=== PATIENT | female | born 1980 | race Two or more races ===

== ENCOUNTER 2024-04-23 13:50 | Outpatient (AMB) | payer MEDICAID, SELFPAY ==
[2024-04-23 14:01] VITALS: BP 108/71; PULSE 66; RESP 19; TEMP 36.4; O2SAT 99; BMI 24.4
--- NOTE | 2024-04-23 14:01 | PD.GSCLVISIT ---
[facility] - [facility] 04/23/24 14:01 Height 1.68 m Height Method Stated Weight 68.606 kg Weight Measurement Method Standing Scale BMI 24.4 BP 108/71 Blood Pressure Source Automatic Cuff Blood Pressure Location Right Upper Arm Position Sitting Respiration 19 Pulse 66 Pulse Source Monitor Temp 97.6 F Temp Source Temporal Artery Scan Pulse Oximetry (%) 99 Oxygen Delivery Method Room Air Med/Allergies Allergies & Medications Allergies No Known Allergies Allergy (Verified 04/23/24 14:02) Medication Reconciliation hydrocodone 5 mg-acetaminophen 325 mg tablet 1 tab PO Q8H PRN pain #7 tabs 10/18/22 [Rx Confirmed 04/23/24] misoprostol 200 mcg tablet 600 mcg (3 x 200 mcg) PO .once #3 tabs 10/18/22 [Rx Confirmed 04/23/24] ibuprofen 600 mg tablet 600 mg PO Q6H PRN pain #30 tabs 04/23/24 [Rx] MA Intake Visit Data Collection New Patient or Established: New Patient (never been to [facility]) Seen by Clinical Staff ONLY (RN/MA): No Reason for Visit:: REFERRAL HEMORRHOIDS Pain Present Currently: Yes Pain Location: Unable to identify Pain scale:: 3 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 PCP or OBGYN visit in last 3 months: Yes Hx Now: No Do You Feel Safe at Home: Yes Authorities Contacted: N/A Smoking Status Smoking Status: Never smoker Immunization / Flu Flu Vaccine in the Last 12 Months: No Flu Vaccine Exclusion Criteria: No Exclusion Criteria Past Medical History Past Medical History CARDIAC: Negative Congestive Heart Failure RESPIRATORY: Negative Chronic Obstructive Pulmonary Disease (COPD) GENITOURINARY: Negative Renal Disease ENDOCRINE: Negative Diabetes Mellitus Type 1 or Diabetes Mellitus Type 2 Social History SMOKING STATUS: Smoking status: Never smoker HPI HPI Narrative 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 Pt reports she has long had hemorrhoids but for the past 6 months has noted severe perianal pain which is worse with defecation; she states it is not exactly like passing shards of glass but she does get a severe, throbbing pain at the left perianal region during and after BMs. The pain is so severe she is afraid to eat and has lost 10 lbs during this time. Pt states her BMs are generally soft without any constipation; she had some bleeding initially but it improved with suppositories. Right now she is only using tylenol/ibuprofen which help minimally. Pt has not had a colonoscopy PMH: None PShx: None Meds: Tylenol, ibuprofen PRN Allergies: NKDA Social hx: Nonsmoker Family hx: no known malignancy ROS Review of Systems Systems Reviewed: All systems reviewed, normal except as documented Objective/Exam General General Appearance: alert, cooperative and well groomed Resp Respiratory exam: Absent respiratory distress Rectal Rectal exam: Present hemorrhoids (xternal hemorrhoids) and tenderness (left perianal tenderness; KATT was significant for severe pain but there were no palpable masses; anoscopy attempted but aborted due to severe pain) Assessment & Plan Diagnosis / Problem List (1) Anal fissure: Status: Acute Assessment & Plan: 43F presenting with 6 month history of perianal pain suggestive of an anal fissure. I will prescribe compound cream and ibuprofen PRN and follow up in 6 weeks. All questions were answered and pt is agreeable to this plan Office Procedures GNS Level of Care Nursing/Assessment Patient Status: Initial/New Patient Nursing Assessment/Reassesment: Medication Reconciliation, Update PMH in EMR and Vital Signs Coordination of Care: Complex Care and Chronic Disease 1-5, Education Complex Pt/Fam, Consent,records obtained, informed consent, 1 Ins Authorization, Results/Orders obtained and Staff clarify orders New Patient Charge New Patient Point Assignment: 1109 New Patient Point Charge: COMMUNITY HEALTH COORDINATOR Level 3 ([id number]) Patient Portal Questionaires Social History Tobacco History Smoking Status: Never smoker Domestic Abuse History Do You Feel Safe at Home: Yes Review of Systems Report any current symptoms Only answer those that you have currently: Past Medical History Past Medical History Have you ever been diagnosed with any of the following: Cardiology Problems Congestive Heart Failure: No Respiratory Problems Chronic Obstructive Pulmonary Disease (COPD): No Genital/Urinary Problems Renal Disease: No Endocrine Problems Diabetes Mellitus Type 1: No Diabetes Mellitus Type 2: No
== END 2024-04-23 14:33 | disposition home or self-care (01) ==
LOC: HODSRG 13:50
PROVIDERS: PCP Obstetrics & Gynecology; Referring Provider Obstetrics & Gynecology; Supervising Provider Surgery; Visit Provider Surgery
DX: K60.2 Anal fissure, unspecified (principal)
CPT/HCPCS: 99203; G0463

== ENCOUNTER 2024-06-08 13:00 | Outpatient (AMB) | payer MEDICAID, SELFPAY ==
[2024-06-08 13:05] VITALS: BP 116/77; PULSE 57; RESP 16; TEMP 36.3; O2SAT 99; BMI 25.0
--- NOTE | 2024-06-08 13:05 | PD.GSCLVISIT ---
[facility] - [facility] 06/08/24 13:05 Height 1.68 m Height Method Stated Weight 70.42 kg Weight Measurement Method Standing Scale BMI 25.0 BP 116/77 Blood Pressure Source Automatic Cuff Blood Pressure Location Left Upper Arm Position Sitting Respiration 16 Pulse 57 L Pulse Source Monitor Temp 97.4 F Temp Source Temporal Artery Scan Pulse Oximetry (%) 99 Oxygen Delivery Method Room Air Med/Allergies Allergies & Medications Allergies No Known Allergies Allergy (Verified 06/08/24 13:06) Medication Reconciliation hydrocodone 5 mg-acetaminophen 325 mg tablet 1 tab PO Q8H PRN pain #7 tabs 10/18/22 [Rx Confirmed 06/08/24] misoprostol 200 mcg tablet 600 mcg (3 x 200 mcg) PO .once #3 tabs 10/18/22 [Rx Confirmed 06/08/24] ibuprofen 600 mg tablet 600 mg PO Q6H PRN pain #30 tabs 04/23/24 [Rx Confirmed 06/08/24] MA Intake Visit Data Collection New Patient or Established: Established Patient (seen at [facility] within 3 years) Seen by Clinical Staff ONLY (RN/MA): No Reason for Visit:: F/U HEMORRHOIDS Pain Present Currently: No 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 PCP or OBGYN visit in last 3 months: Yes Smoking Status Smoking Status: Never smoker Immunization / Flu Flu Vaccine in the Last 12 Months: Yes Flu Vaccine Exclusion Criteria: Already Received Past Medical History Past Medical History CARDIAC: Negative Congestive Heart Failure RESPIRATORY: Negative Chronic Obstructive Pulmonary Disease (COPD) GENITOURINARY: Negative Renal Disease ENDOCRINE: Negative Diabetes Mellitus Type 1 or Diabetes Mellitus Type 2 Social History SMOKING STATUS: Smoking status: Never smoker HPI HPI Narrative 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 After last visit I prescribed compound cream and pt feels it does not provide any relief; she states the pain feels more inside and makes her afraid of having a BM. She denies any straining or diarrhea. Pt uses sitz baths which provide some relief and also places ice to the area ROS Review of Systems Systems Reviewed: All systems reviewed, normal except as documented Objective/Exam General General Appearance: alert, cooperative and well groomed Resp Respiratory exam: Absent respiratory distress Assessment & Plan Diagnosis / Problem List (1) Perianal pain: Status: Acute Assessment & Plan: 44F with perianal pain, without constipation or diarrhea, refractory to conservative measures. I recommend diagnostic colonoscopy along with EUA and possible botox injection. I explained risks of procedure including perforation and/or the need to abort, as well as persistence of the fissure. Pt expressed understanding and agrees to proceed Office Procedures GNS Level of Care Nursing/Assessment Patient Status: Established Patient Nursing Assessment/Reassesment: Medication Reconciliation, Update PMH in EMR and Vital Signs Coordination of Care: Complex Care and Chronic Disease 1-5, Education Complex Pt/Fam, 1 Ins Authorization and Staff clarify orders Special Needs: Language special needs Established Patient Charge Established Patient Point Assignment: 100 Established Patient Point Charge: EP Level 3 (80-115) Patient Portal Questionaires Social History Tobacco History Smoking Status: Never smoker Review of Systems Report any current symptoms Only answer those that you have currently: Past Medical History Past Medical History Have you ever been diagnosed with any of the following: Cardiology Problems Congestive Heart Failure: No Respiratory Problems Chronic Obstructive Pulmonary Disease (COPD): No Genital/Urinary Problems Renal Disease: No Endocrine Problems Diabetes Mellitus Type 1: No Diabetes Mellitus Type 2: No
== END 2024-06-08 13:24 | disposition home or self-care (01) ==
LOC: HODSRG 13:00
PROVIDERS: PCP Obstetrics & Gynecology; Referring Provider Obstetrics & Gynecology; Supervising Provider Surgery; Visit Provider Surgery
DX: K62.89 Other specified diseases of anus and rectum (principal)
CPT/HCPCS: 99213; G0463

== ENCOUNTER 2024-07-13 14:49 | Outpatient (AMB) | payer MEDICAID, SELFPAY ==
[2024-07-13 14:54] VITALS: BP 118/73; PULSE 73; RESP 18; TEMP 36.4; O2SAT 98; BMI 25.2
--- NOTE | 2024-07-13 14:54 | GSCOFFNT_ITS ---
Vital Signs - [facility] 07/13/24 14:54 Height 1.68 m Height Method Stated Weight 71.299 kg Weight Measurement Method Standing Scale BMI 25.2 BP 118/73 Blood Pressure Source Automatic Cuff Blood Pressure Location Right Upper Arm Position Sitting Respiration 18 Pulse 73 Pulse Source Monitor Temp 97.5 F Temp Source Temporal Artery Scan Pulse Oximetry (%) 98 Oxygen Delivery Method Room Air Med/Allergies Allergies & Medications Allergies No Known Allergies Allergy (Verified 06/08/24 13:06) MA Intake Visit Data Collection New Patient or Established: Established Patient (seen at [facility] within 3 years) Reason for Visit:: PRE-OPT Pain Present Currently: Yes Pain Location: Buttock Pain scale:: 5 Pain Scale Used: Milana/Numerical Weighing Station Operator Required: Yes PCP or OBGYN visit in last 3 months: Yes Hx Now: No Do You Feel Safe at Home: Yes Authorities Contacted: N/A Smoking Status Smoking Status: Never smoker Immunization / Flu Flu Vaccine in the Last 12 Months: No Flu Vaccine Exclusion Criteria: No Exclusion Criteria Past Medical History Past Medical History CARDIAC: Negative Congestive Heart Failure RESPIRATORY: Negative Chronic Obstructive Pulmonary Disease (COPD) GENITOURINARY: Negative Renal Disease ENDOCRINE: Negative Diabetes Mellitus Type 1 or Diabetes Mellitus Type 2 Social History SMOKING STATUS: Smoking status: Never smoker Travel Risk Travel Hx Recent Travel: No HPI HPI Narrative 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 Pt states she continues to have pain that starts 20 minutes after she has a BM, which feels like a pulsating pain at the gluteal cleft. Her BMs remain soft without any straining or diarrhea and she denies any new complaints ROS Review of Systems Systems Reviewed: All systems reviewed, normal except as documented Objective/Exam General General Appearance: alert, cooperative and well groomed Resp Respiratory exam: Absent respiratory distress Assessment & Plan Diagnosis / Problem List (1) Perianal pain: Status: Acute Assessment & Plan: 44F here for follow up of perianal pain. I explained that colonoscopy will help to evaluate if there is any internal cause of the pain but that if she does have a fissure I will inject botox. I explained benefits/risks including bleeding, perforation and/or the need to abort for safety. All questions were answered and pt is agreeable to proceeding Office Procedures GNS Level of Care Nursing/Assessment Patient Status: Established Patient Nursing Assessment/Reassesment: Medication Reconciliation, Update PMH in EMR and Vital Signs Coordination of Care: Complex Care and Chronic Disease 1-5, Education Complex Pt/Fam, Consent,records obtained, informed consent, Results/Orders obtained and Staff clarify orders Special Needs: Language special needs Established Patient Charge Established Patient Point Assignment: 95 Established Patient Point Charge: EP Level 3 (80-115) Patient Portal Questionaires Social History Tobacco History Smoking Status: Never smoker Domestic Abuse History Do You Feel Safe at Home: Yes Review of Systems Report any current symptoms Only answer those that you have currently: Past Medical History Past Medical History Have you ever been diagnosed with any of the following: Cardiology Problems Congestive Heart Failure: No Respiratory Problems Chronic Obstructive Pulmonary Disease (COPD): No Genital/Urinary Problems Renal Disease: No Endocrine Problems Diabetes Mellitus Type 1: No Diabetes Mellitus Type 2: No
== END 2024-07-13 15:17 | disposition home or self-care (01) ==
LOC: HODSRG 14:49
PROVIDERS: PCP Obstetrics & Gynecology; Referring Provider Obstetrics & Gynecology; Supervising Provider Surgery; Visit Provider Surgery
DX: K62.89 Other specified diseases of anus and rectum (principal)
CPT/HCPCS: 99213; G0463

== ENCOUNTER 2024-07-20 05:45 | Day surgery (SDC) | payer MEDICAID, SELFPAY ==
[2024-07-16 12:09] VITALS: BMI 26.7
[2024-07-16 13:09] LABS: Basophils # (Auto) 0.1 Thou/mm3 (0.0-0.2); Basophils % (Auto) 1 % (0-2.5); Eosinophils # (Auto) 0.1 Thou/mm3 (0.0-0.5); Eosinophils % (Auto) 1 % (0-10); Hematocrit 30.9 % (36.0-46.0); Hemoglobin 9.4 g/dL (12.0-16.0); Immature Granulocytes % (Auto) 0 % (0-0); Immature Granulocytes Auto 0.03 Thou/mm3 (0.00-0.00); Lymphocytes # (Auto) 2.1 Thou/mm3 (1.0-4.8); Lymphocytes % (Auto) 28 % (10-50); Mean Corpuscular HGB Conc 30.4 g/dl (31.0-37.0); Mean Corpuscular Hemoglobin 21.8 pg (25.0-35.0); Mean Corpuscular Volume 72 fL (80-100); Monocytes # (Auto) 0.8 Thou/mm3 (0.0-0.8); Monocytes % (Auto) 10 % (0-12); Neutrophils # (Auto) 4.4 Thou/mm3 (1.8-7.7); Neutrophils % (Auto) 59 % (37-80); Nucleated Red Blood Cell % 0 /100 WBC (0); Platelet Count 279 Thou/mm3 (140-440); Red Blood Count 4.31 Miln/mm3 (4.00-5.20); White Blood Count 7.4 Thou/mm3 (3.6-11.0)
[2024-07-16 13:17] LABS: Partial Thromboplastin Time 24.8 Seconds (22.0-36.0); Prothrombin Time 10.5 Seconds (9.0-12.2)
[2024-07-16 13:18] LABS: Anion Gap 7 (7-16); BUN/Creatinine Ratio 15 Ratio (12-20); Blood Urea Nitrogen 9 mg/dL (9-23); Calcium 9.2 mg/dL (8.3-10.6); Carbon Dioxide 27.3 mMol/L (20.0-31.0); Chloride 107 mMol/L (98-107); Creatinine (Component) 0.6 mg/dL (0.6-1.3); Estimated Creatinine Clearance 114.3 mL/min (>60); Glucose 94 mg/dL (74-106); Osmolality,Calculated 279 (275-295); Sodium 141 mMol/L (136-145); eGFR > 60 See Note
[2024-07-16 13:25] LABS: HCG,Qualitative Serum Negative
[2024-07-20] VITALS (8 sets, daily range): BP systolic 100–130; BP diastolic 59–86; PULSE 59–87; RESP 12–16; TEMP 36.2–36.4; O2SAT 96–100; BMI 25.7
[2024-07-20] MEDS: RINGERS LACTATED 1000 ML 1,000 ML 20 ML IV (06:37)
--- NOTE | 2024-07-20 08:28 | SUR.PHASEII ---
pt received from OR in recovery bay 1. pt asleep but responds to voice, breathing unlabored on 2l oxymask. v/s stable. pt dressing to rectal area cdi. report received from Dr. Farhad Castorena.
--- NOTE | 2024-07-20 08:38 | PD.SUROPNT ---
Date of Procedure 07/20/24 Pre Op Diagnosis Anal fissure Post Op Diagnosis Same Procedure Injection of botox between internal and external anal sphincters Findings Posterior midline anal fissure Procedure Description After discussion of risks and benefits, pt was brought to operating room and MAC anesthesia was induced. After timeout she first underwent colonoscopy which was dictated separately and then she was placed in lithotomy position with proper padding. The posterior midline anal fissure had been observed during colonoscopy and there was no sign of malignancy on colonoscopy so I opted to inject botox as I had explained to the pt preoperatively. 100 units of botulinum toxin had been mixed with 2cc of normal saline and 1cc of this was drawn into a 1cc syringe. A Mendez retractor was placed into the anus and 0.5cc of the botox mixture was injected between the internal and external anal sphincters on both the left and right. Antibiotic ointment was placed over the fissure and the pt was returned to supine position. She was awoken and brought to PACU in stable condition Pathology / specimen None Estimated Blood Loss 1 Surgeon Ashley Mendoza MD Surgical Staff Operation Date: 07/20/24 07:30 Case Staff Anesthesiologist: Phu Caruso
--- NOTE | 2024-07-20 08:44 | ESDS_ITS ---
Planned Discharge Date 07/20/24 DS: Providers Provider Primary care physician: John Liu MD Attending Provider on Admission: Ashley Mendoza MD Attending Provider on DC: Ashley Mendoza MD Discharging Provider: Ashley Mendoza MD Diagnosis Discharge Diagnosis (1) Anal fissure: Status: Acute Problem List Completed Was Problem List Reviewed/Reconciled?: Yes Hospital Course Pt presented with rectal pain and underwent colonoscopy with findings of an anal fissure as well as hemorrhoids, followed by botox injection of the anal sphincters Exam Vital Signs Temp Pulse Resp BP Pulse Ox O2 Flow Rate 97.1 F 63 12 104/62 98 2 07/20/24 08:40 07/20/24 08:40 07/20/24 08:40 07/20/24 08:40 07/20/24 08:40 07/20/24 08:35 Discharge Plan Plan Patient Disposition: HOME (Self Care) Prescriptions/Referrals Prescriptions/Med Rec: New tramadol 50 mg tablet 50 mg PO Q8H PRN (Reason: pain) Qty: 30 0RF ibuprofen 600 mg tablet 600 mg PO Q6H PRN (Reason: pain) Qty: 30 0RF Referrals: John Liu MD [Primary Care Provider] - Ashley Mendoza MD [Physician] - (You will receive a phone call to confirm a follow-up appt with me in 6 weeks) Patient/Caregiver Discharge Instructions Other Discharge Activity Instructions:: You may resume sitz baths as needed tomorrow 07/21/24 Avoid constipation and diarrhea You may take tylenol in addition to the prescribed medications as needed for pain Education Materials: Anesthesia MAC, Understanding Anal Fissures, Colonoscopy, Preventing Surgical Site Infections, Taking a Sitz Bath, ED Anal Fissure (Child) Print Language: Turkmen Stand Alone Forms: [employer] Award Info., Patient Portal Info Letter Discharge Order Discharge Orders: Discharge (Routine); Ordered 07/20/24 Ordered By: Ashley Mendoza Results Results: Laboratory Laboratory results: results reviewed Procedures Procedure Date 07/20/24 Procedures Injection of botox between internal and external anal sphincters
[2024-07-20] MEDS: fentaNYL CIT INJ 50 mCg/ML AMP 2ML IV (08:57)
--- NOTE | 2024-07-20 09:37 | SUR.PHASEII ---
pt able to tolerate oral fluids without difficulty swallowing or nausea/vomiting.
--- NOTE | 2024-07-20 09:42 | SUR.PHASEII ---
pt awake and alert, breathing unlabored on room air. v/s stable. pt dressing to rectal area cdi. pt able to ambulate to wheelchair with steady gait. d/c instructions given with Darinel using healthcare advisory services manager Markus Vo, all questions answered. pt d/c via wheelchair with all belongings.
== END 2024-07-20 09:42 | disposition home or self-care (01) ==
PROVIDERS: Anesthesiology; PCP Family Medicine; Referring Provider Surgery; Visit Provider Surgery
PROC: 0DJD8ZZ Inspection of Lower Intestinal Tract, Via Natural or Artificial Opening Endoscopic (ICD-10-PCS; CPT 45378; principal; 2024-07-20 07:30)
PROC: (CPT 45378; 2024-07-20 07:30)
DX: K62.89 Other specified diseases of anus and rectum (principal); K60.2 Anal fissure, unspecified; K64.9 Unspecified hemorrhoids
CPT/HCPCS: 45378; 36415; 80048; 84703; 85025; 85610; 85730; A4217; A4649; J2250; J2704; J3010; J3490; J7120; J1596

== ENCOUNTER 2024-08-31 09:52 | Outpatient (AMB) | payer MEDICAID, SELFPAY ==
--- NOTE | 2024-08-31 09:53 | PD.GSCLVISIT ---
Vital Signs - [facility] 08/31/24 10:06 Height 1.63 m Height Method Stated Weight 71.696 kg Weight Measurement Method Standing Scale BMI 26.9 BP 98/65 Blood Pressure Source Automatic Cuff Blood Pressure Location Left Upper Arm Position Sitting Respiration 18 Pulse 59 L Pulse Source Monitor Temp 97.8 F Temp Source Temporal Artery Scan Pulse Oximetry (%) 98 Oxygen Delivery Method Room Air Med/Allergies Allergies & Medications Allergies No Known Allergies Allergy (Verified 08/31/24 10:08) Medication Reconciliation ibuprofen 600 mg tablet 600 mg PO Q6H PRN pain #30 tabs 07/20/24 [Rx Confirmed 08/31/24] tramadol 50 mg tablet 50 mg PO Q8H PRN pain #30 tabs 07/20/24 [Rx Confirmed 08/31/24] MA Intake Visit Data Collection New Patient or Established: Established Patient (seen at [facility] within 3 years) Seen by Clinical Staff ONLY (RN/MA): No Reason for Visit:: HEMORRHOIDS FOLLOW UP Pain Present Currently: No 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 PCP or OBGYN visit in last 3 months: Yes Hx Now: No Do You Feel Safe at Home: Yes Authorities Contacted: N/A Smoking Status Smoking Status: Never smoker Immunization / Flu Flu Vaccine in the Last 12 Months: No Flu Vaccine Exclusion Criteria: No Exclusion Criteria Past Medical History Past Medical History NEUROLOGIC: Negative Neurological Disorders or Seizures CARDIAC: Negative Cardiac Disorders or Congestive Heart Failure RESPIRATORY: Negative Chronic Obstructive Pulmonary Disease (COPD) GASTROINTESTINAL: Negative Gastrointestinal Disorders GENITOURINARY: Negative Genitourinary Disorders or Renal Disease REPRODUCTIVE: Positive Previous Pregnancies (3) ENDOCRINE: Negative Endocrine Disorders, Diabetes Mellitus Type 1 or Diabetes Mellitus Type 2 HEMATOLOGIC: Negative Blood Disorders OTHER HISTORY: Positive Hospitalization (surgery), Blood Transfusions and Chicken Pox; Negative Autoimmune Disease, Shingles, Blood Transfusion Reaction, Anesthesia Reactions or Cancer Family History FAMILY HISTORY: Positive Family Gastrointestinal Problems and Family Surgery; Negative Family Psychiatric Problems, Family Respiratory Disorders, Family Cardiac Disorders, Family Cancer or Family Anesthesia Reaction Surgical History SURGICAL: Positive Section (3) Social History SMOKING STATUS: Smoking status: Never smoker ALCOHOL: Alcohol Intake: Never HOUSING: Housing: House HPI HPI Narrative 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 Pt reports feeling better overall, she has minimal pain with defecation and is not requiring any topical medications or sitz baths. She occasionally has blood with wiping, reports her BMs are soft without any straining ROS Review of Systems Systems Reviewed: All systems reviewed, normal except as documented Objective/Exam General General Appearance: alert, cooperative and well groomed Resp Respiratory exam: Absent respiratory distress Results Colonoscopy report reviewed Assessment & Plan Diagnosis / Problem List (1) Anal fissure: Status: Acute Assessment & Plan: 44F s/p botox injection to anal fissure 07/20/24 recovering well with significant improvement in her symptoms. Pt is encouraged to continue her healthy bowel habits and to reach out as needed if symptoms recur (2) Encounter to discuss colonoscopy results: Status: Acute Assessment & Plan: Colonoscopy 07/2024 with good prep was negative aside from anal fissure. As pt has no family history of CRC I informed that she should undergo her next colonoscopy in 10 years Office Procedures GNS Level of Care Nursing/Assessment Patient Status: Established Patient Nursing Assessment/Reassesment: Medication Reconciliation, Update PMH in EMR and Vital Signs Coordination of Care: Complex Care and Chronic Disease 1-5, Consent,records obtained, informed consent, Education Simp Pt/Fam, Results/Orders obtained and Staff clarify orders Established Patient Charge Established Patient Point Assignment: 90 Established Patient Point Charge: EP Level 3 (80-115) Patient Portal Questionaires Social History Living Situation History Housing: House Tobacco History Smoking Status: Never smoker Alcohol History Alcohol Intake: Never Domestic Abuse History Do You Feel Safe at Home: Yes Review of Systems Report any current symptoms Only answer those that you have currently: Past Medical History Past Medical History Have you ever been diagnosed with any of the following: Neurological Problems Seizures: No Cardiology Problems Congestive Heart Failure: No Respiratory Problems Chronic Obstructive Pulmonary Disease (COPD): No Genital/Urinary Problems Renal Disease: No Reproductive Problems Previous Pregnancies: Yes (3) Endocrine Problems Diabetes Mellitus Type 1: No Diabetes Mellitus Type 2: No Other Problems Hospitalization: Yes (surgery) Autoimmune Disease: No Shingles: No Blood Transfusions: Yes Blood Transfusion Reaction: No Anesthesia Reactions: No Chicken Pox: Yes Cancer: No
[2024-08-31 10:06] VITALS: BP 98/65; PULSE 59; RESP 18; TEMP 36.6; O2SAT 98; BMI 26.9
== END 2024-08-31 10:22 | disposition home or self-care (01) ==
PROVIDERS: PCP Family Medicine; Referring Provider Family Medicine; Supervising Provider Surgery; Visit Provider Surgery
DX: Z71.2 Person consulting for explanation of examination or test findings (principal); K60.2 Anal fissure, unspecified
CPT/HCPCS: 99213; G0463

== ENCOUNTER 2025-02-15 10:21 | Emergency (ER) | payer MEDICAID, SELFPAY ==
[2025-02-15 10:40] VITALS: BP 125/82; PULSE 66; RESP 17; TEMP 36.8; O2SAT 99; BMI 28.5
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
== END 2025-02-15 12:10 | disposition home or self-care (01) ==
PROVIDERS: Emergency Provider Nurse Practitioner Family
DX: S13.4XXA Sprain of ligaments of cervical spine, initial encounter (principal); S29.9XXA Unspecified injury of thorax, initial encounter; S09.90XA Unspecified injury of head, initial encounter; V89.2XXA Person injured in unspecified motor-vehicle accident, traffic, initial encounter
CPT/HCPCS: 70450; 71046; 72125; 99283